=== PATIENT | male | born 1935 | race Caucasian/White ===

== ENCOUNTER 2017-09-07 08:42 | Inpatient (IN) | payer OTHER, MEDICARE ==
[~2017-09-07] VITALS: Ht 175.3 cm; Wt 105.8 kg
[~2017-09-07 08:42] MED LIST: ACET325 PO; ALBU3IS INH; ALBU90OI61 INH; AMLO10 PO; ASPI81EC PO; ATEN25 PO; ATOR10 PO; Augmentin 500-1 EACH PO; BACL20 PO; BISA10S PR; CEFD300 PO; CVS DISPOSABLE399 ML PR; FEXO180 PO; FEXPSEER PO; Ferus150 MG PO; GUAI600T33 PO; HCTZ/LISINOPRIL PO; LISI20 PO; METO50 PO; MULVITMINF PO; Milk Of Ma400 MG/5 M PO; NIAC500 PO; SACC250C; SENN187 PO; SIMV10 PO; Synthroid75 MCG; UNK ANTIBIOTIC
[2017-09-07 09:04] LABS: PCO2 Arterial 41.7 mmHg (35-45); PO2 Arterial 59.7 mmHg (80-100); pH Blood Arterial 7.41 (7.35-7.45)
[2017-09-07] MEDS ORDERED: AMLO10 PO (09:05)
[2017-09-07] MEDS ORDERED: ASPI81CH PO (09:06)
[2017-09-07] MEDS ORDERED: LEVSOD75 PO (09:07)
[2017-09-07] MEDS ORDERED: ATOR10 PO (09:07)
[2017-09-07] MEDS ORDERED: HYDCHL12.5 PO (09:07)
[2017-09-07] MEDS ORDERED: METO50 PO (09:08)
[2017-09-07] MEDS ORDERED: MULTI VITAMIN1 EACH PO (09:09)
[2017-09-07] MEDS ORDERED: LISI20 PO (09:10)
[2017-09-07] MEDS ORDERED: BACL20 PO (09:10)
[2017-09-07] MEDS ORDERED: SENN187 PO (09:10)
[2017-09-07] MEDS ORDERED: ALLEGRA ALLERG180 MG PO (09:11)
[2017-09-07] MEDS ORDERED: Ultram50 MG PO (09:12)
[2017-09-07 10:04] LABS: BASOPHILS ABSOLUTE AUTO 0.03 K/mm3 (0.00-0.23); BASOPHILS PERCENT AUTO 0 % (0-2); EOSINOPHILS ABSOLUTE AUTO 0.09 K/mm3 (0.00-0.68); EOSINOPHILS PERCENT AUTO 1 % (0-6); Hematocrit 48.4 % (37.0-53.0); Hemoglobin 15.7 g/dL (13.5-17.5); IMMATURE GRAN ABSOLUTE AUTO 0.14 K/mm3 (0.00-0.10); IMMATURE GRAN PERCENT AUTO 1 % (0-1); LYMPHOCYTES ABSOLUTE AUTO 1.53 K/mm3 (0.84-5.20); LYMPHOCYTES PERCENT AUTO 10 % (21-46); MONOCYTES ABSOLUTE AUTO 1.34 K/mm3 (0.16-1.47); MONOCYTES PERCENT AUTO 9 % (4-13); Mean Corpuscular HGB 30.5 pg (26.0-34.0); Mean Corpuscular HGB Conc 32.4 g/dL (31.5-36.5); Mean Corpuscular Volume 94 fL (80-100); Mean Platelet Volume 10.5 fL (9.1-12.4); NEUTROPHILS ABSOLUTE AUTO 11.78 K/mm3 (1.96-9.15); NEUTROPHILS PERCENT AUTO 79 % (41-73); Platelet Count 178 K/mm3 (150-400); RDW Coefficient Variation 13.5 % (11.7-14.2); RDW Standard Deviation 47.1 fL (35.1-46.3); Red Blood Cell Count 5.15 M/mm3 (4.30-5.90); White Blood Cell Count 14.91 K/mm3 (4.00-11.30)
[2017-09-07 10:27] LABS: Calcium, Blood 8.5 mg/dL (8.5-10.1); Creatinine, Blood 1.46 mg/dL (0.60-1.20); Potassium, Blood 4.6 mmol/L (3.5-5.5)
[2017-09-07 10:49] LABS: Troponin I 0.506 ng/mL (0.000-0.040)
[2017-09-07 11:29] LABS: Source, Urine Catheter
[2017-09-07 11:53] LABS: Bilirubin, Urine Neg (Neg); Blood, Urine 4+ (Neg); Glucose Qualitative, Urine Neg (Neg); Ketones, Urine 1+ (Neg); Leukocyte Esterase, Urine 3+ (Neg); Nitrite, Urine Neg (Neg); Protein, Urine 3+ (Neg); Urobilinogen, Urine NORM (Normal)
[2017-09-07 12:05] LABS: Appearance, Urine Cloudy (Clear); Color, Urine Yellow (P-Yellow)
[2017-09-07 12:06] LABS: White Blood Cells, Urine TNTC /hpf (0-5)
[2017-09-07 12:08] LABS: Bacteria Many /hpf; Red Blood Cells, Urine TNTC /hpf (0-2); Squamous Epithelial Cells Rare /hpf (Few)
[2017-09-09 04:55] LABS: BASOPHILS ABSOLUTE AUTO 0.02 K/mm3 (0.00-0.23); BASOPHILS PERCENT AUTO 0 % (0-2); EOSINOPHILS PERCENT AUTO 1 % (0-6); Hematocrit 37.8 % (37.0-53.0); IMMATURE GRAN ABSOLUTE AUTO 0.09 K/mm3 (0.00-0.10); IMMATURE GRAN PERCENT AUTO 1 % (0-1); LYMPHOCYTES ABSOLUTE AUTO 1.06 K/mm3 (0.84-5.20); LYMPHOCYTES PERCENT AUTO 10 % (21-46); MONOCYTES ABSOLUTE AUTO 1.07 K/mm3 (0.16-1.47); MONOCYTES PERCENT AUTO 10 % (4-13); Mean Corpuscular HGB 30.5 pg (26.0-34.0); Mean Corpuscular HGB Conc 31.7 g/dL (31.5-36.5); Mean Corpuscular Volume 96 fL (80-100); Mean Platelet Volume 10.8 fL (9.1-12.4); NEUTROPHILS ABSOLUTE AUTO 8.83 K/mm3 (1.96-9.15); NEUTROPHILS PERCENT AUTO 79 % (41-73); Platelet Count 148 K/mm3 (150-400); RDW Coefficient Variation 13.5 % (11.7-14.2); RDW Standard Deviation 48.2 fL (35.1-46.3); Red Blood Cell Count 3.93 M/mm3 (4.30-5.90); White Blood Cell Count 11.17 K/mm3 (4.00-11.30)
[2017-09-09 05:11] LABS: Bun/Creatinine Ratio 30.6 (12.0-20.0); Calcium, Blood 8.2 mg/dL (8.5-10.1); Creatinine, Blood 1.24 mg/dL (0.60-1.20); Phosphorus, Blood 2.7 mg/dL (2.5-4.9); Potassium, Blood 3.2 mmol/L (3.5-5.5)
[2017-09-09 11:55] LABS: Vancomycin, Trough 13.4 ug/mL (5.0-10.0)
[2017-09-10 04:10] LABS: Hemoglobin 12.6 g/dL (13.5-17.5); Mean Corpuscular HGB 30.3 pg (26.0-34.0); Mean Corpuscular HGB Conc 31.5 g/dL (31.5-36.5); Mean Corpuscular Volume 96 fL (80-100); Mean Platelet Volume 10.4 fL (9.1-12.4); Platelet Count 164 K/mm3 (150-400); RDW Coefficient Variation 13.5 % (11.7-14.2); RDW Standard Deviation 47.8 fL (35.1-46.3); Red Blood Cell Count 4.16 M/mm3 (4.30-5.90); White Blood Cell Count 9.89 K/mm3 (4.00-11.30)
[2017-09-10 04:27] LABS: Anion Gap 6 mmol/L (6-16); Blood Urea Nitrogen 30 mg/dL (8-24); Bun/Creatinine Ratio 29.4 (12.0-20.0); CO2, Blood 31 mmol/L (21-32); Calcium, Blood 8.2 mg/dL (8.5-10.1); Chloride, Blood 108 mmol/L (98-108); Creatinine, Blood 1.02 mg/dL (0.60-1.20); Glomerular Filtration Rate >60 (60-); Glucose, Blood 106 mg/dL (70-99); Potassium, Blood 3.3 mmol/L (3.5-5.5); Sodium, Blood 145 mmol/L (136-145)
[2017-09-11 04:47] LABS: Anion Gap 5 mmol/L (6-16); Blood Urea Nitrogen 29 mg/dL (8-24); Bun/Creatinine Ratio 27.9 (12.0-20.0); CO2, Blood 32 mmol/L (21-32); Calcium, Blood 8.5 mg/dL (8.5-10.1); Chloride, Blood 107 mmol/L (98-108); Creatinine, Blood 1.04 mg/dL (0.60-1.20); Glomerular Filtration Rate >60 (60-); Glucose, Blood 105 mg/dL (70-99); Potassium, Blood 3.5 mmol/L (3.5-5.5); Sodium, Blood 144 mmol/L (136-145)
[2017-09-13 17:11] LABS: Source, Urine Catheter
[2017-09-13 17:13] LABS: Bilirubin, Urine Neg (Neg); Blood, Urine 5+ (Neg); Glucose Qualitative, Urine Neg (Neg); Ketones, Urine Neg (Neg); Leukocyte Esterase, Urine 3+ (Neg); Nitrite, Urine Pos (Neg); Protein, Urine 2+ (Neg); Urobilinogen, Urine NORM (Normal)
[2017-09-13 17:46] LABS: Appearance, Urine Cloudy (Clear); Color, Urine Yellow (P-Yellow)
[2017-09-13 17:47] LABS: Red Blood Cells, Urine TNTC /hpf (0-2)
[2017-09-13 17:49] LABS: Bacteria Few /hpf; Squamous Epithelial Cells Rare /hpf (Few)
[2017-09-14 04:06] LABS: Hematocrit 43.1 % (37.0-53.0); Hemoglobin 13.7 g/dL (13.5-17.5); Mean Corpuscular HGB 30.4 pg (26.0-34.0); Mean Corpuscular HGB Conc 31.8 g/dL (31.5-36.5); Mean Corpuscular Volume 96 fL (80-100); Mean Platelet Volume 10.3 fL (9.1-12.4); Platelet Count 206 K/mm3 (150-400); RDW Coefficient Variation 13.3 % (11.7-14.2); RDW Standard Deviation 47.7 fL (35.1-46.3); Red Blood Cell Count 4.51 M/mm3 (4.30-5.90); White Blood Cell Count 10.85 K/mm3 (4.00-11.30)
[2017-09-14 04:25] LABS: Bun/Creatinine Ratio 26.7 (12.0-20.0); Calcium, Blood 8.8 mg/dL (8.5-10.1); Creatinine, Blood 1.31 mg/dL (0.60-1.20)
[2017-09-16] MEDS ORDERED: MORP20L PO (10:49)
[2017-09-16] MEDS ORDERED: LORA1 PO (10:51)
[2017-09-16] MEDS ORDERED: ATROPINE 0.01%-10 ML SL (10:52)
[2017-09-16] MEDS ORDERED: POTCHL10ER PO (10:53)
== END 2017-09-16 12:19 | DRG 698 ==
LOC: ER 08:42 → PCU 12:33
PROVIDERS: Emergency Medicine; Internal Medicine; Pharmacist
PROC: 02HV33Z Insertion of Infusion Device into Superior Vena Cava, Percutaneous Approach (ICD-10-PCS; principal; 2017-09-08)
DX: T83.511A Infection and inflammatory reaction due to indwelling urethral catheter, initial encounter (principal); A41.9 Sepsis, unspecified organism; I26.92 Saddle embolus of pulmonary artery without acute cor pulmonale; J96.01 Acute respiratory failure with hypoxia; J18.9 Pneumonia, unspecified organism; L89.319 Pressure ulcer of right buttock, unspecified stage; L89.329 Pressure ulcer of left buttock, unspecified stage; N17.9 Acute kidney failure, unspecified; G35 Multiple sclerosis; N18.2 Chronic kidney disease, stage 2 (mild); I12.9 Hypertensive chronic kidney disease with stage 1 through stage 4 chronic kidney disease, or unspecified chronic kidney disease; N39.0 Urinary tract infection, site not specified; Z51.5 Encounter for palliative care; E03.9 Hypothyroidism, unspecified; Z66 Do not resuscitate; J44.9 Chronic obstructive pulmonary disease, unspecified; E87.6 Hypokalemia; Z79.82 Long term (current) use of aspirin
CPT/HCPCS: 36415; 36569; 36600; 71045; 71260; 80048; 80202; 81001; 82565; 82803; 83880; 84100; 84145; 84484; 85025; 85027; 87077; 87086; 87186; 93005; 93010; 93306; 93970; 94660; 94761; 94762; 96361; 96365; 99285; C1751; J1650; J2543; J3370; J7030; J7050; J7120; Q9967